=== PATIENT | male | born 1945 | race Caucasian/White ===

== ENCOUNTER 2024-09-08 03:18 | Emergency (ER) | payer OTHER ==
[~2024-09-08] VITALS: Ht 177.8 cm; Wt 77.1 kg
[2024-09-08 04:29] LABS: PLATELET COUNT (AUTO) 217 K/uL (150-450); RED BLOOD CELL COUNT(AUTO) 4.12 MIL/uL (4.5-6.0); RED CELL DISTRIBUTION WIDTH 15.0 % (11.5-15.0); WHITE BLOOD COUNT (AUTO) 10.6 K/uL (4.3-11.0)
[2024-09-08 04:41] LABS: APPEARANCE,URINE SLIGHTLY CLOUDY (CLEAR); BLOOD, URINE 3+ Ery/uL (NEGATIVE); LEUKOCYTE ESTERASE ,URINE 2+ (NEGATIVE); NITRITE, URINE NEGATIVE (NEGATIVE); UGLUCOSE TRACE mg/dL (NEGATIVE)
[2024-09-08 04:44] LABS: ASPARTATE AMINOTRANSFERASE 21.0 U/L (15-37); CALCIUM, SERUM 9.1 mg/dL (8.5-10.1); CREATININE 3.0 mg/dL (0.6-1.3); SODIUM SERUM 139.0 mmol/L (136-145); TOTAL PROTEIN, SERUM 7.4 g/dL (6.4-8.2); UREA NITROGEN, BLOOD 46.0 mg/dL (7-18)
[2024-09-08 04:59] LABS: ADD URINE CULTURE YES
[2024-09-08 05:00] LABS: SQUAMOUS EPITHELIAL CELL,UR Few /HPF (None Seen)
[2024-09-08] MEDS ORDERED: CEFTRIAXONE 1GM BAG (ER ONLY) 50 ML IV ONE (05:33)
[2024-09-08] MEDS: CEFTRIAXONE 1GM BAG (ER ONLY) 1 GM/50 ML PIGGYBACK IV ONE (05:34)
[2024-09-08] MEDS: IV NS 0.9% 500 ML BAG IV ONE (05:34)
[2024-09-08 10:31] VITALS: BP 140/65; TEMP 98.7; O2SAT 98
== END 2024-09-08 10:32 | disposition short-term general hospital (02) ==
LOC: ER 03:18
DX: E11.649 Type 2 diabetes mellitus with hypoglycemia without coma (principal); G93.40 Encephalopathy, unspecified; N17.9 Acute kidney failure, unspecified; N39.0 Urinary tract infection, site not specified; R41.82 Altered mental status, unspecified; I10 Essential (primary) hypertension; R07.9 Chest pain, unspecified
CPT/HCPCS: 99285; 96374; 70450; 71045; 93005; 85025; 80048; 87086; 80076; 81001; 36415; 84484; 82962; J7040; J0696